=== PATIENT | male | born 1995 | race Caucasian/White ===

== ENCOUNTER 2017-06-28 05:27 | Emergency (ER) | payer OTHER, BC ==
[~2017-06-28] VITALS: Ht 188 cm; Wt 113.3 kg
[~2017-06-28 05:27] MED LIST: NAPROSYN500 MG PO; NORCO 5/3251 TABLET PO; XYLOCAINE VISC100 ML MM
[2017-06-28 05:29] VITALS: BP 147/94
[2017-06-28] MEDS ORDERED: NORCO 5/3251 TABLET PO (06:07)
== END 2017-06-28 06:24 | disposition home or self-care (01) ==
LOC: EME 05:27
DX: S80.11XA Contusion of right lower leg, initial encounter (principal); W19.XXXA Unspecified fall, initial encounter; Y99.0 Civilian activity done for income or pay; F17.200 Nicotine dependence, unspecified, uncomplicated
CPT/HCPCS: 73590; 99281; 99284